=== PATIENT | female | born 1960 | race African-American/Black ===

== ENCOUNTER 2017-03-11 01:13 | Inpatient (IN) | payer OTHER ==
[2017-03-11] VITALS (64 sets, daily range): BP systolic 63–141; BP diastolic 41–88
[~2017-03-11] VITALS: Ht 185.4 cm; Wt 76.7 kg
[2017-03-11] MEDS ORDERED: LORazepam Inj 2mg/ml 1ml ONE (01:16)
[2017-03-11] MEDS ORDERED: LORazepam Inj 2mg/ml 1ml IV ONE (01:30)
[2017-03-11 01:39] LABS: HEMATOCRIT 33.3 % (37.0-47.0); MEAN CORPUSCULAR VOLUME 88 FL (80-99); PLATELET COUNT 303 K/UL (150-450); RED BLOOD COUNT 3.78 M/UL (4.20-5.40); RED CELL DISTRIBUTION WIDTH 14.1 % (11.6-14.8); WHITE BLOOD COUNT 15.5 K/UL (4.8-10.8)
[2017-03-11] MEDS ORDERED: GABAPENTIN100 MG ORAL (01:40)
[2017-03-11] MEDS ORDERED: MULTI-DELYN237 ML GT (01:40)
[2017-03-11] MEDS ORDERED: SENNA8.6 M2 JT (01:40)
[2017-03-11] MEDS ORDERED: TYLENOL325 MG (01:40)
[2017-03-11] MEDS ORDERED: VIMPAT200 MG JT (01:40)
[2017-03-11] MEDS ORDERED: LACTULOSE20 GM/301 JT (01:40)
[2017-03-11] MEDS ORDERED: GLYCOPYRROLATE1 MG PO (01:40)
[2017-03-11] MEDS ORDERED: POLYETHYLENE GL17 GM JT (01:40)
[2017-03-11] MEDS ORDERED: ZINC30 M1 JT (01:40)
[2017-03-11] MEDS ORDERED: ELIQUIS5 MG JT (01:40)
[2017-03-11] MEDS ORDERED: CARVEDILOL12.5 MG JT (01:40)
[2017-03-11] MEDS ORDERED: LOVENOX60 MG/0.6 SUBQ (01:40)
[2017-03-11] MEDS ORDERED: ASPIR 8181 MG JT (01:40)
[2017-03-11] MEDS ORDERED: PHENOBARBITAL60 MG ORAL (01:40)
[2017-03-11] MEDS ORDERED: PHENYTOIN100 MG/4 M ORAL (01:40)
[2017-03-11] MEDS ORDERED: DOCUSATE SODIU100 MG ORAL (01:40)
[2017-03-11] MEDS ORDERED: ATORVASTATIN CA40 MG JT (01:40)
[2017-03-11] MEDS ORDERED: Ampicillin/Sulbactam Sod 3 GM in NS 110 ML IVPB ONE (01:45)
[2017-03-11 01:46] LABS: ANION GAP 7 mmol/L (5-15); BLOOD UREA NITROGEN 14 mg/dL (7-18); CALCIUM 9.2 MG/DL (8.5-10.1); CARBON DIOXIDE 30 MMOL/L (21-32); CHLORIDE 98 MMOL/L (98-107); CREATININE 0.7 MG/DL (0.55-1.30); POTASSIUM 3.8 MMOL/L (3.5-5.1); SODIUM 135 MMOL/L (136-145)
[2017-03-11] MEDS ORDERED: Unasyn 3gm Inj ONE (01:50)
[2017-03-11] MEDS ORDERED: Hydrocortisone 100mg Inj IV ONE (02:00)
[2017-03-11 02:01] LABS: ALANINE AMINOTRANSFERASE 71 U/L (12-78); ALBUMIN 2.3 G/DL (3.4-5.0); ALBUMIN/GLOBULIN RATIO 0.5 (1.0-2.7); ALKALINE PHOSPHATASE 399 U/L (46-116); ASPARTATE AMINO TRANSFERASE 55 U/L (15-37); BILIRUBIN,TOTAL 0.3 MG/DL (0.2-1.0); CKMB < 0.5 NG/ML (0.0-3.6); CREATINE KINASE 36 U/L (26-308); PHOSPHORUS 3.3 MG/DL (2.5-4.9)
--- NOTE | 2017-03-11 02:14 | Emergency Room Report ---
History of Present Illness General Chief Complaint: Altered Level of Consciousness Source: Family Member, Medical Record Present Illness HPI Patient is a 56-year-old female sent in by fpc after increased fever and hypotension. Patient prior history of a previous CVA with resulting right- sided weakness. Patient was noted to be normally able to raise and lower her head. The patient was noted to be less responsive than usual. She was noted to be febrile and hypotensive. The patient brought in by EMS Allergies: Coded Allergies: No Known Allergies (Unverified , 03/11/17) Patient History Past Medical History: see triage record Last Menstrual Period: UNK Reviewed Nursing Documentation: PMH: Agreed, PSxH: Agreed Review of Systems All Other Systems: negative except mentioned in HPI Physical Exam Vital Signs Date Time Temp Pulse Resp B/P (MAP) Pulse Ox O2 Delivery O2 Flow Rate FiO2 03/11/17 01:09 98.2 106 22 191/118 95 Trach Collar 2.0 Sp02 EP Interpretation: reviewed, normal General Appearance: lethargic, Chronically Ill Head: atraumatic ENT: uvula midline, other Neck: no bony tend, limited range of motion, other - tracheotomy Respiratory: lungs clear, rhonchi Cardiovascular #1: no edema Gastrointestinal: normal inspection, normal bowel sounds, non tender, soft, no guarding, no hernia Genitourinary: no CVA tenderness Musculoskeletal: back normal, decreased range of motion Neurologic: aphasia, motor weakness, other - minimally responsive Skin: normal inspection, normal color, no rash Procedures Critical Care Time Critical Care Time Patient had a critical medical condition which untreated could potentially result in life or limb threatening injury. Total critical care time excluding procedures approximately 45 minutes. Central Line Central Line : Consent: Emergent Maximal Sterile Barrier Tech: yes cap, yes mask, yes sterile gown, yes sterile gloves, yes large sterile sheet, yes hand hygiene, yes chlorhexidine prep Central Line Postion: internal jugular (R) Anesthesia: Lidocaine cc's of anesthesia: 3 Complications: none Central Line Post Position: sutured, good blood return, position confirmed w / CXR Attempts: Other Patient Tolerated: Well Complications: None Progress Right external jugular venous central line placed due to difficulty obtaining access as needle would not enter vein. 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 Differential diagnosis included wasn't limited to pneumonia, urinary tract infection, drug fever, allergic reaction, sepsis, cholecystitis, among others.Because of complexity of patient's case laboratory testing and imaging studies were ordered. The patient noted be febrile and hypotensive. Patient given Ativan IV for possible seizure activity. Patient was given IV fluids as well as IV antibiotics.Patient was given IV Ativan for right upper extremity twitching which may represent focal seizure activity. The patient is a started on pressors due to septic shock and persistent hypotension after fluid bolus. Repeat exam showed improvement in her blood pressure and skin perfusion. Blood cultures are obtained.patient was start mechanical ventilator via trach. Dr. Thee Larson was contacted for inpatient management. Labs Test 03/11/17 01:20 03/11/17 02:00 White Blood Count 15.5 K/UL (4.8-10.8) Red Blood Count 3.78 M/UL (4.20-5.40) Hemoglobin 11.0 G/DL (12.0-16.0) Hematocrit 33.3 % (37.0-47.0) Mean Corpuscular Volume 88 FL (80-99) Mean Corpuscular Hemoglobin 29.1 PG (27.0-31.0) Mean Corpuscular Hemoglobin Concent 33.1 G/DL (32.0-36.0) Red Cell Distribution Width 14.1 % (11.6-14.8) Platelet Count 303 K/UL (150-450) Mean Platelet Volume 7.3 FL (6.5-10.1) Neutrophils (%) (Auto) % (45.0-75.0) Lymphocytes (%) (Auto) % (20.0-45.0) Monocytes (%) (Auto) % (1.0-10.0) Eosinophils (%) (Auto) % (0.0-3.0) Basophils (%) (Auto) % (0.0-2.0) Sodium Level 135 MMOL/L (136-145) Potassium Level 3.8 MMOL/L (3.5-5.1) Chloride Level 98 MMOL/L (98-107) Carbon Dioxide Level 30 MMOL/L (21-32) Anion Gap 7 mmol/L (5-15) Blood Urea Nitrogen 14 mg/dL (7-18) Creatinine 0.7 MG/DL (0.55-1.30) Estimat Glomerular Filtration Rate > 60 mL/min (>60) Glucose Level 121 MG/DL (74-106) Lactic Acid Level 2.00 mmol/L (0.66-2.22) Calcium Level 9.2 MG/DL (8.5-10.1) Phosphorus Level 3.3 MG/DL (2.5-4.9) Magnesium Level 1.6 MG/DL (1.8-2.4) Total Bilirubin 0.3 MG/DL (0.2-1.0) Aspartate Amino Transf (AST/SGOT) 55 U/L (15-37) Alanine Aminotransferase (ALT/SGPT) 71 U/L (12-78) Alkaline Phosphatase 399 U/L (46-116) Total Creatine Kinase 36 U/L (26-308) Creatine Kinase MB < 0.5 NG/ML (0.0-3.6) Creatine Kinase MB Relative Index 1.3 Troponin I 0.000 ng/mL (0.000-0.056) Total Protein 7.3 G/DL (6.4-8.2) Albumin 2.3 G/DL (3.4-5.0) Globulin 5.0 g/dL Albumin/Globulin Ratio 0.5 (1.0-2.7) Urine Color Pale yellow Urine Appearance Cloudy Urine pH 8 (4.5-8.0) Urine Specific [place] 1.010 (1.005-1.035) Urine Protein Negative (NEGATIVE) Urine Glucose (UA) Negative (NEGATIVE) Urine Ketones Negative (NEGATIVE) Urine Occult Blood Negative (NEGATIVE) Urine Nitrite Negative (NEGATIVE) Urine Bilirubin Negative (NEGATIVE) Urine Urobilinogen Normal MG/DL (0.0-1.0) Urine Leukocyte Esterase 1+ (NEGATIVE) Urine RBC 0-2 /HPF (0 - 2) Urine WBC 0-2 /HPF (0 - 2) Urine Squamous Epithelial Cells Few /LPF (NONE/OCC) Urine Amorphous Sediment Many /LPF (NONE) Urine Bacteria Few /HPF (NONE) EKG Diagnostic Results Rate: normal Rhythm: NSR ST Segments: no acute changes Rhythm Strip Diag. Results EP Interpretation: yes Rhythm: NSR, no PVC's, no ectopy Last Vital Signs Date Time Temp Pulse Resp B/P (MAP) Pulse Ox O2 Delivery O2 Flow Rate FiO2 2/2/18 01:09 98.2 106 22 191/118 95 Trach Collar 2.0 Status: improved Disposition: ADMITTED INPATIENT Condition: Critical Cong Arredondo Mar 11, 2017 02:14
[2017-03-11] MEDS ORDERED: Lidocaine 1% MPF 10mg/ml 5ml ONE (02:32)
[2017-03-11 02:44] LABS: APPEARANCE,URINE CLOUDY; BILIRUBIN, URINE NEGATIVE (NEGATIVE); COLOR,URINE PALE YELLOW; GLUCOSE, URINE (UA) NEGATIVE (NEGATIVE); KETONES,URINE NEGATIVE (NEGATIVE); LEUKOCYTE ESTERASE ,URINE 1+ (NEGATIVE); NITRITE,URINE NEGATIVE (NEGATIVE); PH,URINE 8 (4.5-8.0); PROTEIN,URINE NEGATIVE (NEGATIVE); UROBILINOGEN,URINE NORMAL MG/DL (0.0-1.0)
[2017-03-11] MEDS ORDERED: Levophed 4mg/4mL Inj IV ONE (03:00)
[2017-03-11] MEDS: Lidocaine 1% MPF 10mg/ml 5ml INJ ONE ×2 (03:10→03:11)
--- NOTE | 2017-03-11 08:39 | History & Physical ---
History and Physical History & Physicial 56 year old female with history of stroke and trach/GT presents with hypotension without clear source LOC worse than baseline patient nonverbal at baseline but able to open eyes PMH trach GT respiratory failure CVA seizure history MEDS/ALLERGIES noted ROS unable PHYSICAL WDWN chronically ill reduced breath sounds bilaterally without rhonchi or wheeze trach [id number] without MRG NABS nontender no HSM; GT no CCE poor LOC Laboratory Tests Test 03/11/17 01:20 03/11/17 01:43 03/11/17 02:00 White Blood Count 15.5 K/UL (4.8-10.8) H Red Blood Count 3.78 M/UL (4.20-5.40) L Hemoglobin 11.0 G/DL (12.0-16.0) L Hematocrit 33.3 % (37.0-47.0) L Mean Corpuscular Volume 88 FL (80-99) Mean Corpuscular Hemoglobin 29.1 PG (27.0-31.0) Mean Corpuscular Hemoglobin Concent 33.1 G/DL (32.0-36.0) Red Cell Distribution Width 14.1 % (11.6-14.8) Platelet Count 303 K/UL (150-450) Mean Platelet Volume 7.3 FL (6.5-10.1) Neutrophils (%) (Auto) % (45.0-75.0) Lymphocytes (%) (Auto) % (20.0-45.0) Monocytes (%) (Auto) % (1.0-10.0) Eosinophils (%) (Auto) % (0.0-3.0) Basophils (%) (Auto) % (0.0-2.0) Sodium Level 135 MMOL/L (136-145) L Potassium Level 3.8 MMOL/L (3.5-5.1) Chloride Level 98 MMOL/L (98-107) Carbon Dioxide Level 30 MMOL/L (21-32) Anion Gap 7 mmol/L (5-15) Blood Urea Nitrogen 14 mg/dL (7-18) Creatinine 0.7 MG/DL (0.55-1.30) Estimat Glomerular Filtration Rate > 60 mL/min (>60) Glucose Level 121 MG/DL (74-106) H Lactic Acid Level 2.00 mmol/L (0.66-2.22) Calcium Level 9.2 MG/DL (8.5-10.1) Phosphorus Level 3.3 MG/DL (2.5-4.9) Magnesium Level 1.6 MG/DL (1.8-2.4) L Total Bilirubin 0.3 MG/DL (0.2-1.0) Aspartate Amino Transf (AST/SGOT) 55 U/L (15-37) H Alanine Aminotransferase (ALT/SGPT) 71 U/L (12-78) Alkaline Phosphatase 399 U/L (46-116) H Total Creatine Kinase 36 U/L (26-308) Creatine Kinase MB < 0.5 NG/ML (0.0-3.6) Creatine Kinase MB Relative Index 1.3 Troponin I 0.000 ng/mL (0.000-0.056) Total Protein 7.3 G/DL (6.4-8.2) Albumin 2.3 G/DL (3.4-5.0) L Globulin 5.0 g/dL Albumin/Globulin Ratio 0.5 (1.0-2.7) L Arterial Blood pH 7.406 (7.350-7.450) Arterial Blood Partial Pressure CO2 43.7 mmHg (35.0-45.0) Arterial Blood Partial Pressure O2 170.3 mmHg (75.0-100.0) H Arterial Blood HCO3 26.8 mmol/L (22.0-26.0) H Arterial Blood Oxygen Saturation 98.6 % (92.0-98.0) H Arterial Blood Base Excess 1.7 Louie Test Positive Urine Color Pale yellow Urine Appearance Cloudy Urine pH 8 (4.5-8.0) Urine Specific [place] 1.010 (1.005-1.035) Urine Protein Negative (NEGATIVE) Urine Glucose (UA) Negative (NEGATIVE) Urine Ketones Negative (NEGATIVE) Urine Occult Blood Negative (NEGATIVE) Urine Nitrite Negative (NEGATIVE) Urine Bilirubin Negative (NEGATIVE) Urine Urobilinogen Normal MG/DL (0.0-1.0) Urine Leukocyte Esterase 1+ (NEGATIVE) H Urine RBC 0-2 /HPF (0 - 2) Urine WBC 0-2 /HPF (0 - 2) Urine Squamous Epithelial Cells Few /LPF (NONE/OCC) Urine Amorphous Sediment Many /LPF (NONE) H Urine Bacteria Few /HPF (NONE) IMPRESSION sepsis leukocytosis acute on chronic encephalopathy seizure disorder trach gt PE PLAN resume snf meds monitor levels empiric antibiotics monitor LOC ID evaluation feeds pressors vent critical RENNY BIGGS Mar 11, 2017 08:39
[2017-03-11] MEDS ORDERED: Lactulose 20gm/30ml UDC ORAL PRN (08:45)
[2017-03-11] MEDS ORDERED: Docusate 100mg cap ORAL PRN (08:45)
[2017-03-11] MEDS ORDERED: Miralax 17gm pkt ORAL PRN (08:45)
[2017-03-11] MEDS ORDERED: Amikacin Rx to dose MISC PRN (09:00)
[2017-03-11] MEDS: Aspirin EC 81mg tab ORAL SCH (09:45)
[2017-03-11] MEDS ORDERED: Enoxaparin Sodium 300mg/3ml vial SUBQ SCH (10:00)
[2017-03-11] MEDS ORDERED: Amikacin 1,000 MG in NS 110 ML IV ONE (10:30)
[2017-03-11] MEDS: Cefepime HCl 1 GM in NS 55 ML IVPB SCH ×2 (10:54→20:35)
[2017-03-11] MEDS: Vancomycin 1500mg IVPB SCH ×2 (12:37→23:50)
[2017-03-11] MEDS: Phenytoin Susp 100mg/4ml ORAL SCH ×2 (14:00→22:07)
--- NOTE | 2017-03-11 14:16 | Diagnostic Imaging Report ---
Indication: Chest pain Technique: Continuous helical transaxial imaging of the chest was obtained from the thoracic inlet to the upper abdomen during rapid intravenous contrast administration. Arterial phase of enhancement obtained. Coronal 2-D reformats were also obtained and maximum intensity projection images in multiple planes. Study obtained in a Siemens sensation [address] Automatic Exposure Control was utilized. Total Dose length Product (DLP): 2049.[address] Dose Index Volume (CTDIvol): 27.89 mGy Comparison: None Findings: The pulmonary artery is well opacified and shows no filling defects. There are artifacts limiting evaluation of the right lower lobe pulmonary artery branches. There is no adenopathy, pleural or pericardial effusions are identified. There is no aortic dissection or aneurysm identified within the chest. Endotracheal tube is in good position. There is dense consolidation at the left lung base suspicious for pneumonia. Left upper lobe infiltrate also noted. Some component of this is atelectasis as there is volume loss present. Heart is enlarged. There is incidental hepatomegaly. There are several hypodensities within the liver nonspecific. Please refer to the separately dictated CT abdomen and pelvis report Impression: No evidence of pulmonary embolus aortic dissection or aneurysm. Some limitations as described above Evidence of left-sided pneumonia. Hepatomegaly. Multiple hypodensities nonspecific. Please refer to the separately dictated CT abdomen and pelvis report. The CT scanner at [facility] is accredited by the [employer] and the scans are performed using dose optimization techniques as appropriate to a performed exam including Automatic Exposure control.
--- NOTE | 2017-03-11 14:16 | Diagnostic Imaging Report ---
Indication: Line placement Comparison: Earlier the same day A single view chest radiograph was obtained. Findings: There is a line projected over the right upper chest. The tip is projected over the lateral part of the clavicle within what may be an unnamed vessel. The tip is not within the central vein. There is no pneumothorax seen. Extensive left pulmonary infiltrate suspected with probable left pleural effusion. Tracheostomy is present. IMPRESSION: Right jugular line noted. The tip is in an unnamed branch vessel and requires repositioning.
--- NOTE | 2017-03-11 14:16 | Diagnostic Imaging Report ---
Indication: Abdominal pain Technique: Continuous helical transaxial imaging of the abdomen and pelvis was obtained from the lung bases to the pubic symphysis during intravenous contrast administration. Coronal 2-D reformats were also obtained. Study obtained in a Siemens sensation [address] Automatic Exposure Control was utilized. Total Dose length Product (DLP): Refer to CTA chest mGycm CT Dose Index Volume (CTDIvol): Refer to CTA chest mGy Comparison: None Findings: The liver is enlarged. There are multiple hypodensities that are likely cysts. Dense left basilar consolidation again noted. Spleen is normal in size. A gastrostomy tube is present. Fluid-filled and mildly distended loops of small bowel noted. There is moderate retention of feces in the colon. Gallbladder is distended. Aorta is moderately calcified. Small bilateral renal cysts are present. Uterus noted. Filling defect demonstrated within the bladder lumen. This may be debris or blood. Please correlate clinically. IMPRESSION: Left basilar pneumonia. Mild distention of fluid-filled small bowel. Doubt obstruction. Consider ileus or enteritis. Moderate fecal retention Blood or debris within the urinary bladder. Please correlate clinically. Gastrostomy. Hepatomegaly. Multiple hepatic cysts. Atherosclerotic disease The CT scanner at [facility] is accredited by the [employer] and the scans are performed using dose optimization techniques as appropriate to a performed exam including Automatic Exposure control.
--- NOTE | 2017-03-11 14:17 | Diagnostic Imaging Report ---
Indication: Dyspnea Comparison: None A single view chest radiograph was obtained. Findings: Extensive opacification of the left perihilar and basilar region of the lung demonstrated. There is some vascular prominence noted within the right lung. Tracheostomy is present. Bones are slightly osteopenic. IMPRESSION: Suspect a left pleural effusion and underlying parenchymal disease may be extensive infiltrate or atelectasis. Mild prominence of pulmonary vascularity without overt CHF.
[2017-03-11] MEDS ORDERED: LORazepam Inj 2mg/ml 1ml IV PRN (19:30)
[2017-03-11] MEDS: Atorvastatin 20mg tab ORAL SCH (20:35)
[2017-03-11] MEDS: Enoxaparin 80mg Inj SUBQ SCH (22:08)
[2017-03-12] VITALS (24 sets, daily range): BP systolic 11–148; BP diastolic 62–97
[2017-03-12] MEDS: Phenytoin Susp 100mg/4ml ORAL SCH ×3 (05:32→22:19)
[2017-03-12 07:51] LABS: BASOPHILS % (AUTO) 0.2 % (0.0-2.0); EOSINOPHILS % (AUTO) 0.5 % (0.0-3.0); HEMATOCRIT 30.4 % (37.0-47.0); LYMPHOCYTES % (AUTO) 14.6 % (20.0-45.0); MEAN CORPUSCULAR VOLUME 86 FL (80-99); MONOCYTES % (AUTO) 3.4 % (1.0-10.0); NEUTROPHILS % (AUTO) 81.3 % (45.0-75.0); PLATELET COUNT 245 K/UL (150-450); RED BLOOD COUNT 3.53 M/UL (4.20-5.40); RED CELL DISTRIBUTION WIDTH 13.9 % (11.6-14.8); WHITE BLOOD COUNT 14.5 K/UL (4.8-10.8)
[2017-03-12 08:35] LABS: ANION GAP 7 mmol/L (5-15); BLOOD UREA NITROGEN 7 mg/dL (7-18); CARBON DIOXIDE 26 MMOL/L (21-32); CHLORIDE 101 MMOL/L (98-107); CREATININE 0.4 MG/DL (0.55-1.30); POTASSIUM 3.5 MMOL/L (3.5-5.1); SODIUM 134 MMOL/L (136-145)
[2017-03-12] MEDS: Aspirin EC 81mg tab ORAL SCH (10:01)
[2017-03-12] MEDS: Docusate 100mg/10ml Liq NG SCH ×2 (10:01→18:04)
[2017-03-12] MEDS: Cefepime HCl 1 GM in NS 55 ML IVPB SCH ×2 (10:01→21:12)
[2017-03-12] MEDS: Enoxaparin 80mg Inj SUBQ SCH ×2 (10:03→22:20)
--- NOTE | 2017-03-12 10:56 | Diagnostic Imaging Report ---
Indication: Shortness of breath Technique: One view of the chest Comparison: 03/11/2017 Findings: Interim improvement of aeration of the left lung, although I am loss, parenchymal and possibly pleural disease persists at the left lung base. The right lung and pleural space remain clear. Tracheostomy remains. A catheter is seen in the right supraclavicular fossa. The tip of a catheter is also seen in the upper abdomen Impression: Improved left lung aeration, but persistent parenchymal infiltrate and possibly pleural fluid at the left lung base. Other findings as noted
--- NOTE | 2017-03-12 11:08 | Critical Care Progress Note ---
Assessment/Plan Assessment/Plan IMPRESSION sepsis leukocytosis acute on chronic encephalopathy seizure disorder trach gt PE PLAN snf meds seizure precautions monitor levels empiric antibiotics monitor LOC ID evaluation feeds pressors not needed vent critical Critical Care - Subjective Interval Events: hemodynamics stable ROS Limited/Unobtainable: Yes Condition: critical EKG Rhythm: Sinus Rhythm Residuals: minimal Tube Feeding Tolerated: yes I&O: Intake and Output 03/11/17 03/12/17 19:00 07:00 Intake Total 1455.0 ml 1609.375 ml Output Total 0 ml 1300 ml Balance 1455.0 ml 309.375 ml Intake Free Water 150 ml IV Total 1305.0 ml 1489.375 ml Other 120 ml Output Urine Total 0 ml 1300 ml # Voids 3 1 # Bowel Movements 1 Critical Care - Objective Last 24 Hour Vital Signs Date Time Temp Pulse Resp B/P (MAP) Pulse Ox O2 Delivery O2 Flow Rate FiO2 03/12/17 10:39 99 22 30 03/12/17 09:00 101 18 119/71 98 Mechanical Ventilator 30 03/12/17 08:38 101 18 30 03/12/17 08:00 103 03/12/17 08:00 98.4 103 17 120/77 98 Mechanical Ventilator 30 03/12/17 08:00 30 03/12/17 07:09 104 18 30 03/12/17 07:00 103 18 113/79 98 Mechanical Ventilator 30 03/12/17 06:00 103 18 125/81 96 Mechanical Ventilator 30 03/12/17 05:06 102 17 30 03/12/17 05:00 102 21 115/79 98 Mechanical Ventilator 30 03/12/17 04:00 97.9 98 17 111/81 98 Mechanical Ventilator 30 03/12/17 04:00 102 03/12/17 04:00 30 03/12/17 03:02 103 16 30 03/12/17 03:00 103 18 125/80 97 Mechanical Ventilator 30 03/12/17 02:00 100 17 148/78 97 Mechanical Ventilator 30 03/12/17 01:26 101 17 30 03/12/17 01:00 105 18 130/97 99 Mechanical Ventilator 30 03/12/17 00:00 30 03/12/17 00:00 108 03/12/17 00:00 98.4 104 18 125/73 100 Mechanical Ventilator 30 03/11/17 23:30 108 20 131/74 98 Mechanical Ventilator 30 2/2/18 23:15 108 17 121/74 98 Mechanical Ventilator 30 2/2/18 23:00 110 18 113/74 98 Mechanical Ventilator 30 2/2/18 22:56 109 14 30 2/2/18 22:45 105 17 110/65 98 Mechanical Ventilator 30 2/2/18 22:30 111 17 125/71 98 Mechanical Ventilator 30 2/2/18 22:30 125/71 2/2/18 22:15 112 17 110/74 98 Mechanical Ventilator 30 2/2/18 22:00 112 20 110/74 100 Mechanical Ventilator 30 2/2/18 22:00 110/74 2/2/18 21:45 115 20 114/73 98 Mechanical Ventilator 30 2/2/18 21:30 113 20 123/75 98 Mechanical Ventilator 30 2/2/18 21:15 115 16 126/85 100 Mechanical Ventilator 30 2/2/18 21:09 112 17 30 2/2/18 21:00 98.9 114 19 141/65 98 Mechanical Ventilator 30 2/2/18 21:00 141/65 2/2/18 20:00 114 2/2/18 20:00 99.8 114 19 113/69 98 Mechanical Ventilator 30 2/2/18 20:00 30 2/2/18 20:00 103/64 2/2/18 19:00 100/60 2/2/18 19:00 113 20 100/60 99 Mechanical Ventilator 30 2/2/18 18:57 113 18 30 2/2/18 18:30 113 20 101/62 97 Mechanical Ventilator 30 2/2/18 18:30 99.1 2/2/18 18:15 113 19 100/65 97 Mechanical Ventilator 30 2/2/18 18:08 101/63 2/2/18 18:00 101/63 2/2/18 18:00 113 19 101/63 97 Mechanical Ventilator 30 2/2/18 17:55 100.8 2/2/18 17:45 114 16 122/70 97 Mechanical Ventilator 30 2/2/18 17:30 115 16 104/63 97 Mechanical Ventilator 30 2/2/18 17:15 114 16 107/58 98 Mechanical Ventilator 30 2/2/18 17:05 114 17 30 2/2/18 17:00 114 16 103/63 97 Mechanical Ventilator 30 2/2/18 17:00 103/63 2/2/18 16:45 113 16 104/66 100 Mechanical Ventilator 30 2/2/18 16:30 112 16 102/63 100 Mechanical Ventilator 30 2/2/18 16:30 101.1 2/2/18 16:00 86/56 2/2/18 16:00 106 2/2/18 16:00 30 2/2/18 16:00 109 16 96/61 100 Mechanical Ventilator 30 2/2/18 15:45 105 16 86/56 97 Mechanical Ventilator 30 2/2/18 15:30 105 16 87/58 97 Mechanical Ventilator 30 2/2/18 15:15 105 16 91/58 97 Mechanical Ventilator 30 2/2/18 15:00 104 16 100/62 97 Mechanical Ventilator 30 2/2/18 15:00 100/62 2/2/18 15:00 75 20 30 2/2/18 14:45 103 16 103/65 100 Mechanical Ventilator 30 2/2/18 14:30 100 16 89/58 100 Mechanical Ventilator 30 2/2/18 14:15 100 16 97/61 100 Mechanical Ventilator 30 2/2/18 14:00 100 16 92/60 100 Mechanical Ventilator 30 2/2/18 14:00 97/61 2/2/18 13:45 99 15 92/60 100 Mechanical Ventilator 30 2/2/18 13:30 96 15 92/60 100 Mechanical Ventilator 30 2/2/18 13:00 94/42 2/2/18 13:00 96 15 92/63 100 Mechanical Ventilator 30 2/2/18 12:45 93 15 100/68 100 Mechanical Ventilator 30 2/2/18 12:36 80 18 30 2/2/18 12:30 92 15 100/70 100 Mechanical Ventilator 30 2/2/18 12:15 92 15 95/68 100 Mechanical Ventilator 30 2/2/18 12:00 91 2/2/18 12:00 98.4 2/2/18 12:00 90 15 99/71 100 Mechanical Ventilator 30 2/2/18 12:00 95/68 2/2/18 11:45 89 15 98/67 100 Mechanical Ventilator 30 2/2/18 11:30 87 15 96/65 100 Mechanical Ventilator 30 2/2/18 11:15 84 15 96/68 100 Mechanical Ventilator 30 Labs: Laboratory Tests Test 2/2/18 23:40 2/3/18 05:35 03/12/17 08:38 Random Amikacin Level 6.7 MG/L White Blood Count 14.5 K/UL (4.8-10.8) H Red Blood Count 3.53 M/UL (4.20-5.40) L Hemoglobin 10.0 G/DL (12.0-16.0) L Hematocrit 30.4 % (37.0-47.0) L Mean Corpuscular Volume 86 FL (80-99) Mean Corpuscular Hemoglobin 28.3 PG (27.0-31.0) Mean Corpuscular Hemoglobin Concent 32.8 G/DL (32.0-36.0) Red Cell Distribution Width 13.9 % (11.6-14.8) Platelet Count 245 K/UL (150-450) Mean Platelet Volume 7.1 FL (6.5-10.1) Neutrophils (%) (Auto) 81.3 % (45.0-75.0) H Lymphocytes (%) (Auto) 14.6 % (20.0-45.0) L Monocytes (%) (Auto) 3.4 % (1.0-10.0) Eosinophils (%) (Auto) 0.5 % (0.0-3.0) Basophils (%) (Auto) 0.2 % (0.0-2.0) Sodium Level 134 MMOL/L (136-145) L Potassium Level 3.5 MMOL/L (3.5-5.1) Chloride Level 101 MMOL/L (98-107) Carbon Dioxide Level 26 MMOL/L (21-32) Anion Gap 7 mmol/L (5-15) Blood Urea Nitrogen 7 mg/dL (7-18) Creatinine 0.4 MG/DL (0.55-1.30) L Estimat Glomerular Filtration Rate > 60 mL/min (>60) Glucose Level 79 MG/DL (74-106) Calcium Level 9.0 MG/DL (8.5-10.1) Phenytoin (Dilantin) Level 22.1 ug/mL (10-20) H Arterial Blood pH 7.434 (7.350-7.450) Arterial Blood Partial Pressure CO2 41.9 mmHg (35.0-45.0) Arterial Blood Partial Pressure O2 103.0 mmHg (75.0-100.0) H Arterial Blood HCO3 27.4 mmol/L (22.0-26.0) H Arterial Blood Oxygen Saturation 97.5 % (92.0-98.0) Arterial Blood Base Excess 2.9 Louie Test Positive Objective: WDWN NAD trach reduced breath sounds bilaterally without rhonchi or wheeze [id number] without MRG NABS nontender no HSM; GT no CCE reduced LOC Accucheck: 109 RENNY BIGGS Mar 12, 2017 11:08
--- NOTE | 2017-03-12 11:42 | Diagnostic Imaging Report ---
Indications: Altered mental status Technique: Spiral acquisitions obtained through the brain. Angled axial and coronal 5 x 5 mm slices were reconstructed. Total dose length product 1537.95 mGycm. CTDI vol(s) 70.38 mGy. Dose reduction achieved using automated exposure control Comparison: None. Findings: There is some image degradation due to motion artifact. There is rather striking generalized age-related enlargement of the ventricles and extra axial CSF spaces, and considerable periventricular deep white matter low-attenuation consistent with chronic ischemic change. There is encephalomalacia of the left parietal and posterior temporal lobes. This results in more focal ex vacuo dilatation of the posterior body, atrium, and temporal horn of the left lateral ventricle. There is also some occipital encephalomalacia on the left. There is likely some encephalomalacia of the left cerebellar hemisphere. There is encephalomalacia of the right posterior frontal lobe No acute intracranial hemorrhage or edema. No mass effect nor midline shift. Intact calvarium. Visualized orbits and sinuses are unremarkable. There is evidence of bilateral mastoid disease. Impression: Chronic and age-related changes, as described Multiple old infarcts Negative for acute intracranial bleed or mass effect The CT scanner at [facility] is accredited by the [employer] and the scans are performed using protocols designed to limit radiation exposure to as low as reasonably achievable to attain images of sufficient resolution adequate for diagnostic evaluation.
[2017-03-12] MEDS: Vancomycin 1500mg IVPB SCH (12:51)
[2017-03-12] MEDS ORDERED: Tubing IV Secondary IV ONE (16:33)
[2017-03-12] MEDS ORDERED: 1/2 NS 1000ml IV ONE (16:33)
[2017-03-12] MEDS ORDERED: Amikacin 1,000 MG in NS 110 ML IV SCH (18:00)
[2017-03-12] MEDS ORDERED: Dyna-Hex 2% Top Sol 2oz TOPIC SCH (20:00)
[2017-03-12] MEDS: Atorvastatin 20mg tab ORAL SCH (21:12)
[2017-03-13] VITALS (17 sets, daily range): BP systolic 91–144; BP diastolic 44–95
[2017-03-13] MEDS: Vancomycin 1500mg IVPB SCH ×2 (00:01→13:29)
[2017-03-13] MEDS: Phenytoin Susp 100mg/4ml ORAL SCH ×3 (06:00→21:01)
[2017-03-13 06:13] LABS: BASOPHILS % (AUTO) 0.3 % (0.0-2.0); EOSINOPHILS % (AUTO) 1.1 % (0.0-3.0); HEMATOCRIT 29.6 % (37.0-47.0); HEMOGLOBIN 9.7 G/DL (12.0-16.0); MEAN CORPUSCULAR VOLUME 88 FL (80-99); MONOCYTES % (AUTO) 5.8 % (1.0-10.0); NEUTROPHILS % (AUTO) 69.8 % (45.0-75.0); PLATELET COUNT 230 K/UL (150-450); RED BLOOD COUNT 3.38 M/UL (4.20-5.40); RED CELL DISTRIBUTION WIDTH 14.3 % (11.6-14.8)
[2017-03-13] MEDS: Cefepime HCl 1 GM in NS 55 ML IVPB SCH ×2 (08:22→20:21)
[2017-03-13] MEDS: Aspirin EC 81mg tab ORAL SCH (08:22)
[2017-03-13] MEDS: Docusate 100mg/10ml Liq NG SCH ×3 (08:22→20:18)
[2017-03-13] MEDS ORDERED: 1/2 NS 1000ml IV ONE ×2 (10:18→18:27)
[2017-03-13] MEDS ORDERED: Tubing IV Secondary IV ONE (10:18)
[2017-03-13] MEDS: Enoxaparin 80mg Inj SUBQ SCH ×2 (10:31→21:02)
--- NOTE | 2017-03-13 11:22 | Diagnostic Imaging Report ---
Indication: Shortness of breath, chest pain Technique: One view of the chest Comparison: 03/12/2017 Findings: Again demonstrated is retrocardiac consolidation. There is increased left perihilar and right perihilar atelectatic change. Presumably venous catheter is seen in the right supraclavicular fossa, may be kinked. The heart is enlarged. Impression: Increasing bilateral perihilar atelectasis Stable retrocardiac consolidation, over one day
[2017-03-13] MEDS: Vancomycin 1250mg/D5W 250ml IVPB SCH (13:18)
[2017-03-13] MEDS ORDERED: LORazepam Inj 2mg/ml 1ml IV PRN (15:30)
[2017-03-13] MEDS ORDERED: Lactulose 20gm/30ml UDC ORAL PRN (15:30)
[2017-03-13] MEDS ORDERED: Amikacin Rx to dose MISC PRN (15:30)
--- NOTE | 2017-03-13 16:08 | Critical Care Progress Note ---
Assessment/Plan Assessment/Plan IMPRESSION sepsis leukocytosis acute on chronic encephalopathy seizure disorder trach gt PE VRE and MRSA PLAN snf meds seizure precautions monitor levels empiric antibiotics for now monitor LOC ID evaluation feeds pressors not needed vent off improved check dilantin Critical Care - Subjective Interval Events: stable off vent no distress ROS Limited/Unobtainable: Yes Condition: improving EKG Rhythm: Sinus Rhythm Residuals: minimal Tube Feeding Tolerated: yes I&O: Intake and Output 03/12/17 03/13/17 19:00 07:00 Intake Total 1719 ml 950 ml Output Total 850 ml 783 ml Balance 869 ml 167 ml Intake Free Water 100 ml IV Total 1619 ml 950 ml Output Urine Total 850 ml 783 ml # Voids 2 3 # Bowel Movements 2 Critical Care - Objective CXR: atelectasis Last 24 Hour Vital Signs Date Time Temp Pulse Resp B/P (MAP) Pulse Ox O2 Delivery O2 Flow Rate FiO2 03/13/17 14:00 92 21 137/87 100 Trach Collar 30 03/13/17 13:00 92 22 111/77 99 Trach Collar 30 03/13/17 12:00 83 03/13/17 12:00 98.5 90 18 120/83 99 Trach Collar 30 03/13/17 12:00 30 03/13/17 11:00 85 19 120/78 97 Trach Collar 30 03/13/17 10:00 88 19 112/70 100 Trach Collar 30 03/13/17 09:00 86 18 122/81 100 Trach Collar 30 03/13/17 08:00 98.6 90 17 124/78 96 Trach Collar 30 03/13/17 08:00 87 03/13/17 08:00 30 03/13/17 07:46 T-piece 10.0 30 03/13/17 07:45 100 T-piece 10.0 30 03/13/17 07:00 88 18 112/74 100 Trach Collar 30 03/13/17 06:00 78 18 113/79 100 Trach Collar 30 03/13/17 05:00 93 18 125/83 100 Trach Collar 30 03/13/17 04:00 101 03/13/17 04:00 98.7 90 18 105/75 100 Trach Collar 30 03/13/17 04:00 30 03/13/17 03:00 93 18 121/85 100 Trach Collar 30 03/13/17 02:00 99 18 91/48 100 Trach Collar 30 03/13/17 01:00 99 18 94/66 100 Trach Collar 30 03/13/17 00:46 98 20 T-piece 30 03/13/17 00:00 30 03/13/17 00:00 101 03/13/17 00:00 98.6 100 18 140/44 100 Trach Collar 30 03/12/17 23:00 102 18 142/82 100 Trach Collar 30 03/12/17 22:00 100 18 142/73 100 Trach Collar 30 03/12/17 21:00 101 23 111/73 100 Trach Collar 30 03/12/17 20:00 110 03/12/17 20:00 30 03/12/17 20:00 98.9 103 23 125/82 100 Trach Collar 30 03/12/17 19:20 106 22 Trach Collar 30 03/12/17 19:00 104 23 111/71 97 Trach Collar 30 03/12/17 18:00 108 23 131/81 97 Trach Collar 30 03/12/17 17:00 112 22 131/77 96 Trach Collar 30 Labs: Laboratory Tests Test 03/13/17 05:45 03/13/17 11:10 White Blood Count 8.0 K/UL (4.8-10.8) Red Blood Count 3.38 M/UL (4.20-5.40) L Hemoglobin 9.7 G/DL (12.0-16.0) L Hematocrit 29.6 % (37.0-47.0) L Mean Corpuscular Volume 88 FL (80-99) Mean Corpuscular Hemoglobin 28.8 PG (27.0-31.0) Mean Corpuscular Hemoglobin Concent 32.9 G/DL (32.0-36.0) Red Cell Distribution Width 14.3 % (11.6-14.8) Platelet Count 230 K/UL (150-450) Mean Platelet Volume 7.5 FL (6.5-10.1) Neutrophils (%) (Auto) 69.8 % (45.0-75.0) Lymphocytes (%) (Auto) 23.0 % (20.0-45.0) Monocytes (%) (Auto) 5.8 % (1.0-10.0) Eosinophils (%) (Auto) 1.1 % (0.0-3.0) Basophils (%) (Auto) 0.3 % (0.0-2.0) Phenytoin (Dilantin) Level 20.8 ug/mL (10-20) H Vancomycin Level Trough 21.1 ug/mL (5.0-12.0) H Objective: WDWN off vent NAD trach reduced breath sounds bilaterally without rhonchi or wheeze [id number] without MRG NABS nontender no HSM; GT no CCE reduced LOC Micro: Microbiology Date/Time Source Procedure Growth Status 03/11/17 20:56 Blood Blood Culture - Preliminary NO GROWTH AFTER 24 HOURS Resulted 03/11/17 20:50 Blood Blood Culture - Preliminary NO GROWTH AFTER 24 HOURS Resulted 03/11/17 01:20 Blood Blood Culture - Preliminary NO GROWTH AFTER 48 HOURS Resulted 03/11/17 01:10 Blood Blood Culture - Preliminary NO GROWTH AFTER 48 HOURS Resulted 03/11/17 03:30 Nose MRSA Culture - Final Staphylococcus Aureus - Mrsa Complete 03/11/17 03:30 Rectum VRE Culture - Final Enterococcus Faecalis - Vre Complete Accucheck: 109 RENNY BIGGS Mar 13, 2017 16:08
--- NOTE | 2017-03-13 16:52 | Cardiology Report ---
APPROVED REPORT EKG Measurement Heart [id number] Sinus tachycardia Nonspecific T wave abnormality Abnormal ECG
[2017-03-13] MEDS ORDERED: Amikacin 1,000 MG in NS 110 ML IV SCH (18:00)
[2017-03-13] MEDS ORDERED: NS 275ml ONE (18:27)
[2017-03-13] MEDS ORDERED: Dyna-Hex 2% Top Sol 2oz TOPIC SCH (20:00)
[2017-03-13] MEDS ORDERED: Atorvastatin 20mg tab ORAL SCH (21:00)
[2017-03-13] MEDS ORDERED: Miralax 17gm pkt ORAL PRN (21:00)
[2017-03-14] VITALS: BP 147/86
[2017-03-14] MEDS: Vancomycin 1250mg/D5W 250ml 250 ML IVPB SCH ×2 (01:15→14:04)
[2017-03-14 04:00] VITALS: BP 150/95
[2017-03-14] MEDS: Phenytoin Susp 100mg/4ml ORAL SCH ×2 (05:40→14:02)
[2017-03-14 08:00] VITALS: BP 141/85
--- NOTE | 2017-03-14 08:38 | Critical Care Progress Note ---
Assessment/Plan Assessment/Plan IMPRESSION sepsis leukocytosis acute on chronic encephalopathy seizure disorder trach gt PE VRE and MRSA PLAN snf meds seizure precautions monitor levels empiric antibiotics for now monitor LOC ID evaluation feeds pressors not needed vent off improved improved dilantin Critical Care - Subjective Interval Events: transferred to [facility] ROS Limited/Unobtainable: Yes Condition: critical Residuals: minimal Tube Feeding Tolerated: yes I&O: Intake and Output 03/13/17 03/14/17 19:00 07:00 Intake Total 945 ml 1823.334 ml Output Total 60 ml 1400 ml Balance 885 ml 423.334 ml Intake Free Water 30 ml IV Total 805 ml 1643.334 ml Tube Feeding 0 ml 100 ml Other 110 ml 80 ml Output Urine Total 60 ml 1400 ml Critical Care - Objective Last 24 Hour Vital Signs Date Time Temp Pulse Resp B/P (MAP) Pulse Ox O2 Delivery O2 Flow Rate FiO2 03/14/17 04:00 98.1 95 24 150/95 98 Trach Collar 30 03/14/17 04:00 94 03/14/17 00:00 97 03/14/17 00:00 98.1 94 24 147/86 99 Trach Collar 30 03/13/17 20:00 30 03/13/17 20:00 97.5 89 20 144/95 100 Trach Collar 30 03/13/17 20:00 88 03/13/17 19:13 T-piece 10.0 30 03/13/17 19:13 98 Trach Collar 10.0 30 03/13/17 16:27 87 03/13/17 16:00 30 03/13/17 16:00 97.7 84 22 130/86 98 Trach Collar 30 03/13/17 14:00 92 21 137/87 100 Trach Collar 30 03/13/17 13:00 92 22 111/77 99 Trach Collar 30 03/13/17 12:00 83 03/13/17 12:00 98.5 90 18 120/83 99 Trach Collar 30 03/13/17 12:00 30 03/13/17 11:00 85 19 120/78 97 Trach Collar 30 03/13/17 10:00 88 19 112/70 100 Trach Collar 30 03/13/17 09:00 86 18 122/81 100 Trach Collar 30 Labs: Laboratory Tests Test 03/13/17 11:10 03/14/17 04:30 Vancomycin Level Trough 21.1 ug/mL (5.0-12.0) H Phenytoin (Dilantin) Level 18.2 ug/mL (10-20) Objective: WDWN off vent NAD trach reduced breath sounds bilaterally without rhonchi or wheeze [id number] without MRG NABS nontender no HSM; GT no CCE reduced LOC Micro: Microbiology Date/Time Source Procedure Growth Status 03/11/17 20:56 Blood Blood Culture - Preliminary NO GROWTH AFTER 48 HOURS Resulted 03/11/17 20:50 Blood Blood Culture - Preliminary NO GROWTH AFTER 48 HOURS Resulted Accucheck: 109 RENNY BIGGS Mar 14, 2017 08:38
[2017-03-14] MEDS: Docusate 100mg/10ml Liq NG SCH (08:50)
[2017-03-14] MEDS: Cefepime HCl 1 GM in NS 55 ML IVPB SCH ×2 (08:51→08:52)
[2017-03-14] MEDS: Enoxaparin 80mg Inj SUBQ SCH (08:55)
[2017-03-14] MEDS ORDERED: Aspirin EC 81mg tab ORAL SCH (09:00)
[2017-03-14] MEDS ORDERED: Aspirin Baby 81mg GT SCH (09:00)
[2017-03-14 12:00] VITALS: BP 130/87
[2017-03-14] MEDS: Vancomycin 1250mg/D5W 250ml IVPB SCH (14:03)
[2017-03-14] MEDS ORDERED: 1/2 NS 1000ml IV ONE (17:08)
[2017-03-14] MEDS ORDERED: NS 275ml ONE (17:08)
--- NOTE | 2017-03-16 13:35 | Discharge Summary ---
Discharge Summary Hospital Course Date of Admission Mar 11, 2017 at 02:42 Date of Discharge Mar 14, 2017 at 17:09 Admitting Diagnosis SEPTIC SHOCK HPI Mona Garcia is a 56 year old female who was admitted on Mar 11, 2017 at 02: 42 for Septic Shock Hospital Course dc summary #[id number] Discharge Condition Upon Discharge: stable Discharge Disposition Patient was discharged to SNF/Subacute Facility(03) Discharge Diagnoses: Discharge Instructions Discharge Instructions Special Instructions I have been assigned to complete a D/C Summary on this account. I was not involved in the patient management Ritika Jackman NP ([facility]) Mar 16, 2017 13:35
--- NOTE | 2017-03-17 11:15 | Discharge Summary 2 SIG ---
DATE OF ADMISSION: 03/11/2017 DATE OF DISCHARGE: 03/14/2017 REASON FOR ADMISSION: 56 years old female with a history of chronic respiratory failure, tracheostomy dependent, dysphagia, G-tube, history of cerebrovascular accident with right-sided weakness, and seizure disorder, was sent from the custodial facility with fever, hypotension and altered mental status. Upon presentation to the emergency department, the patient was borderline hypotensive, tachycardic, and febrile. Laboratory workup revealed leukocytosis, WBC- 15.5. Lactic acid -2.0. Urinalysis revealed no evidence of urinary tract infection. EKG showed sinus rhythm, no acute ischemic changes. Troponin was negative. Chest x-ray revealed left pleural effusion and underlying parenchymal disease with extensive infiltrates versus atelectasis. Subsequently, CT of the abdomen and pelvis was done, which revealed left basilar pneumonia, moderate fecal impaction. CTA revealed no evidence of pulmonary emboli, but showed evidence of left-sided pneumonia and hepatomegaly. The patient was admitted for sepsis, acute on chronic encephalopathy, pneumonia (was evidenced by imaging), seizure disorder, tracheostomy status, and G-tube. HOSPITAL COURSE: The patient admitted to intensive care unit. The patient was started on fluid resuscitation. No need for pressors. Blood pressure was closely monitored to ensure hemodynamic stability. The patient initially was placed on ventilator. Ventilator support and tracheostomy care provided. Pulmonary toilet provided. Settings titrated to keep pulse oximetry above 92%. The patient was followed up with [facility]. The patient was on empiric antibiotics. Blood culture negative. Infectious Disease consult was requested. Strict aspiration precautions were maintained. The patient was able to tolerate G-tube feeding. Eventually, the patient was able to be disconnected from ventilator. FiO2 via trach collar titrated to keep pulse oximetry above 92%. Tracheostomy care and pulmonary toilet provided. Seizure precautions maintained. Initially, toxic Dilantin level, Dilantin was on hold, Dilantin level trended down and Dilantin was restarted. Seizure precautions were maintained. No evidence of seizure activity while in the hospital. Strict aspiration and reflux precautions were maintained. G-tube site care provided. Leukocytosis resolved, afebrile, no signs of respiratory distress. Laboratory workup stable. The patient was stable for discharge back to subacute custodial facility. Follow up with medical doctor and data management specialist in the facility. DISCHARGE MEDICATIONS: List of medication was sent to admitting facility. DISCHARGE INSTRUCTIONS: The patient was discharged to subacute custodial facility. FOLLOWUP: Follow up with medical doctor and data management specialist at the facility. FINAL DIAGNOSES: 1. Sepsis. 2. Pneumonia. 3. Acute on chronic encephalopathy. 4. Seizure disorder. 5. Tracheostomy status. 6. Dysphagia, G-tube. 7. History of cerebrovascular accident with right-sided weakness. Thee Larson M.D. I have been assigned to dictate discharge summary on this account and I was not involved in the patient's management. Ritika GavinMontefiore Nyack HospitalTerrie N.PFelix DR: SARAH JOB#: [id number] CC: ALETHA
== END 2017-03-14 17:09 | DRG 720 ==
LOC: EDBD 01:13 → EMR 01:27 → ICU 02:42 → EDBEDREQ 05:43 → 2W 03-13 15:10
PROC: 5A1945Z Respiratory Ventilation, 24-96 Consecutive Hours (ICD-10-PCS; principal; 2017-03-11)
DX: A41.9 Sepsis, unspecified organism (principal); G93.40 Encephalopathy, unspecified; J96.10 Chronic respiratory failure, unspecified whether with hypoxia or hypercapnia; J18.9 Pneumonia, unspecified organism; Z43.0 Encounter for attention to tracheostomy; R13.10 Dysphagia, unspecified; G40.909 Epilepsy, unspecified, not intractable, without status epilepticus; Z43.1 Encounter for attention to gastrostomy; I69.351 Hemiplegia and hemiparesis following cerebral infarction affecting right dominant side
CPT/HCPCS: 36415; 36600; 70450; 71045; 71275; 74177; 80048; 80053; 80150; 80185; 80202; 81003; 82550; 82553; 82803; 83605; 83735; 84100; 84484; 85025; 87040; 87081; 93005; 94002; 94003; 94664; 94760; 99291

== ENCOUNTER 2017-03-18 08:57 | Emergency (ER) | payer OTHER ==
[~2017-03-18] VITALS: Ht 157.5 cm; Wt 59.0 kg
[2017-03-18 08:57] VITALS: BP 152/90
[~2017-03-18 08:57] MED LIST: ASPIR 8181 MG JT; ATORVASTATIN CA40 MG JT; CARVEDILOL12.5 MG JT; DOCUSATE SODIU100 MG ORAL; ELIQUIS5 MG JT; GABAPENTIN100 MG ORAL; GLYCOPYRROLATE1 MG PO; LACTULOSE20 GM/301 JT; LOVENOX60 MG/0.6 SUBQ; MULTI-DELYN237 ML GT; PHENOBARBITAL60 MG ORAL; PHENYTOIN100 MG/4 M ORAL; POLYETHYLENE GL17 GM JT; SENNA8.6 M2 JT; TYLENOL325 MG; VIMPAT200 MG JT; ZINC30 M1 JT
[2017-03-18] MEDS ORDERED: LORazepam Inj 2mg/ml 1ml IV ONE (09:30)
--- NOTE | 2017-03-18 09:30 | Emergency Room Report ---
History of Present Illness General Chief Complaint: Malfunctioning Gastric Tube Source: EMS Present Illness HPI Patient seems to have been just recently discharged from a hospital Patient was sent back for reports of the feeding tube being dislodged Patient herself is nonverbal chronically debilitated with tracheostomy Patient is currently on antibiotics for sepsis There was no reports of vomiting or diarrhea unclear exactly when the feeding tube was dislodged Patient is somewhat agitated and pulling at lines Allergies: Coded Allergies: No Known Allergies (Unverified , 03/11/17) Patient History Limited by: medical condition Past Medical History: see triage record Pertinent Family History: unable to obtain Reviewed Nursing Documentation: PMH: Agreed, PSxH: Agreed Nursing Documentation-PM Past Medical History: No History, Except For Hx Cardiac Problems: Yes Hx Hypertension: Yes Hx Cancer: No Hx Gastrointestinal Problems: Yes Hx Neurological Problems: Yes Hx Cerebrovascular Accident: Yes - right side weakness Hx Seizures: Yes Hx Epilepsy: Yes Review of Systems All Other Systems: limited - Other than the ones mentioned in the history of present illness all others are reviewed however they do stay limited due to the patient's mental status Physical Exam Vital Signs Date Time Temp Pulse Resp B/P (MAP) Pulse Ox O2 Delivery O2 Flow Rate FiO2 03/18/17 08:44 98.1 94 24 144/81 94 Trach Collar 4.0 Sp02 EP Interpretation: reviewed, normal General Appearance: mild distress - Appears agitated Head: normocephalic, atraumatic Eyes: bilateral eye PERRL, bilateral eye EOMI ENT: other - Tracheostomy in place Neck: supple, other - Central catheter in the right upper neck Respiratory: crackles - Both lower lobes,mildly tachypnic Cardiovascular #1: regular rate, rhythm, no edema Gastrointestinal: other - Area of stoma where the G-tube was left mid abdomen, suture was still in place stoma is closed Musculoskeletal: other - Patient currently debilitated not following commands Neurologic: responsive - To physical stimuli Skin: no rash Lymphatic: no adenopathy Medical Decision Making Diagnostic Impression: Primary Impression: Malfunction of gastrostomy tube Additional Impressions: Tracheostomy care Tracheostomy in place ER Course At this time the patient appears to have JG tube out of position There is a suture in place however no feeding tube Patient does depend on this tube for further feedings Blood work is initiated Patient will require more urgent intervention Insurance has requested transfer for continued care with HMO status And patient transferred for further care Labs Test 03/18/17 09:58 White Blood Count 9.2 K/UL (4.8-10.8) Red Blood Count 3.25 M/UL (4.20-5.40) Hemoglobin 9.3 G/DL (12.0-16.0) Hematocrit 28.1 % (37.0-47.0) Mean Corpuscular Volume 86 FL (80-99) Mean Corpuscular Hemoglobin 28.5 PG (27.0-31.0) Mean Corpuscular Hemoglobin Concent 33.1 G/DL (32.0-36.0) Red Cell Distribution Width 13.5 % (11.6-14.8) Platelet Count 449 K/UL (150-450) Mean Platelet Volume 5.6 FL (6.5-10.1) Neutrophils (%) (Auto) 68.0 % (45.0-75.0) Lymphocytes (%) (Auto) 20.3 % (20.0-45.0) Monocytes (%) (Auto) 8.4 % (1.0-10.0) Eosinophils (%) (Auto) 3.0 % (0.0-3.0) Basophils (%) (Auto) 0.3 % (0.0-2.0) Prothrombin Time 10.3 SEC (9.30-11.50) Prothromb Time International Ratio 1.0 (0.9-1.1) Sodium Level 135 MMOL/L (136-145) Potassium Level 3.2 MMOL/L (3.5-5.1) Chloride Level 97 MMOL/L (98-107) Carbon Dioxide Level 32 MMOL/L (21-32) Anion Gap 6 mmol/L (5-15) Blood Urea Nitrogen 6 mg/dL (7-18) Creatinine 0.5 MG/DL (0.55-1.30) Estimat Glomerular Filtration Rate > 60 mL/min (>60) Glucose Level 101 MG/DL (74-106) Calcium Level 9.5 MG/DL (8.5-10.1) Rhythm Strip Diag. Results EP Interpretation: yes Rate: 77 Rhythm: NSR, no PVC's, no ectopy Last Vital Signs Date Time Temp Pulse Resp B/P (MAP) Pulse Ox O2 Delivery O2 Flow Rate FiO2 03/18/17 08:57 98.1 89 23 152/90 100 Trach Collar 4.0 Status: improved Disposition: XFER SHT-TRM HOSP Condition: Serious Referrals: RENNY BIGGS (PCP) MICHAEL ORONA D.O. Mar 18, 2017 09:30
[2017-03-18 10:09] VITALS: BP 115/71
[2017-03-18 10:14] LABS: BASOPHILS % (AUTO) 0.3 % (0.0-2.0); HEMATOCRIT 28.1 % (37.0-47.0); HEMOGLOBIN 9.3 G/DL (12.0-16.0); LYMPHOCYTES % (AUTO) 20.3 % (20.0-45.0); MEAN CORPUSCULAR VOLUME 86 FL (80-99); MONOCYTES % (AUTO) 8.4 % (1.0-10.0); PLATELET COUNT 449 K/UL (150-450); RED BLOOD COUNT 3.25 M/UL (4.20-5.40); RED CELL DISTRIBUTION WIDTH 13.5 % (11.6-14.8); WHITE BLOOD COUNT 9.2 K/UL (4.8-10.8)
[2017-03-18 10:18] LABS: ANION GAP 6 mmol/L (5-15); BLOOD UREA NITROGEN 6 mg/dL (7-18); CALCIUM 9.5 MG/DL (8.5-10.1); CARBON DIOXIDE 32 MMOL/L (21-32); CHLORIDE 97 MMOL/L (98-107); CREATININE 0.5 MG/DL (0.55-1.30); POTASSIUM 3.2 MMOL/L (3.5-5.1); SODIUM 135 MMOL/L (136-145)
[2017-03-18 11:51] VITALS: BP 133/82
[2017-03-18 14:01] VITALS: BP 133/82
== END 2017-03-18 14:04 | disposition other institution (70) ==
LOC: EDBD 08:57 → EMR 09:15 → EDBEDREQSVC 10:34 → EDBEDREQ 10:34 → EMR 14:04
DX: Z43.1 Encounter for attention to gastrostomy (principal); Z93.0 Tracheostomy status; I10 Essential (primary) hypertension; I69.351 Hemiplegia and hemiparesis following cerebral infarction affecting right dominant side
CPT/HCPCS: 36415; 80048; 85025; 85610; 96374; 99285